=== PATIENT | female | born 1940 | race Caucasian/White ===

== ENCOUNTER 2021-09-11 03:31 | Emergency (ER) | payer MEDICARE, OTHER ==
[2021-09-11] MEDS ORDERED: Alum Hydroxide/Mag Hydroxide 15 ML, Lidocaine 2% 15 ML PO ONE ×2 (04:01)
[2021-09-11] MEDS ORDERED: Ondansetron 4 MG Tab.DIS PO ONE (04:12)
[2021-09-11] MEDS ORDERED: Potassium Chloride 20 MEQ Tab.ER PO STA (04:57)
--- NOTE | 2021-09-11 05:04 | EDM.PDOC ---
ED HPI GENERAL MEDICAL PROBLEM - General Chief Complaint: Chest Pain Stated Complaint: CHEST PAIN Time Seen by Provider: 09/11/21 03:45 Source of Information: Reports: Patient History Limitations: Reports: No Limitations - History of Present Illness INITIAL COMMENTS - FREE TEXT/NARRATIVE: Patient presented to the Ed because of chest pain and epigastric pain which started at 11 pm last night. she also c/o nausea and vomiting x1. There is no dyspnea, fever, chills, cough or cold symptoms. He has a history of HTN and is taking metoprolol,lisinopril and HCTZ. chest/abdomen Pain Score (Numeric/FACES): 5 - Related Data Allergies Allergy/AdvReac Type Severity Reaction Status Date / Time No Known Allergies Allergy Verified 09/11/21 03:58 Home Meds: Home Meds Famotidine [Pepcid] 10 mg PO DAILY 09/11/21 [History] Metoprolol Tartrate [Lopressor] 50 mg PO DAILY 09/11/21 [History] Ondansetron [Zofran ODT] 4 mg PO Q4H PRN #5 tab.dis 09/11/21 [Rx] Potassium Chloride [Klor-Con M20] 20 meq PO TID #6 tab.er.prt 09/11/21 [Rx] hydroCHLOROthiazide [Hydrochlorothiazide] 12.5 mg PO DAILY 09/11/21 [History] lisinopriL [Prinivil] 20 mg PO DAILY 09/11/21 [History] Past Medical History HEENT History: Reports: Impaired Vision Cardiovascular History: Reports: Hypertension Gastrointestinal History: Reports: GERD [employer] History: Reports: - Infectious Disease History Infectious Disease History: Reports: Chicken Pox, Measles, Mumps Social & Family History - Tobacco Use Tobacco Use Status *Q: Never Tobacco User Second Hand Smoke Exposure: No - Caffeine Use Caffeine Use: Reports: None - Recreational Drug Use Recreational Drug Use: No ED ROS GENERAL - Review of Systems Review Of Systems: See Below Constitutional: Reports: No Symptoms HEENT: Reports: No Symptoms Respiratory: Reports: No Symptoms Cardiovascular: Reports: Chest Pain Endocrine: Reports: No Symptoms GI/Abdominal: Reports: Abdominal Pain, Nausea, Vomiting Musculoskeletal: Reports: No Symptoms Skin: Reports: No Symptoms Neurological: Reports: No Symptoms Psychiatric: Reports: No Symptoms ED EXAM, GENERAL - Physical Exam Exam: See Below Exam Limited By: No Limitations General Appearance: Alert, No Apparent Distress Eye Exam: Bilateral Eye: PERRL Ears: Normal External Exam, Normal Canal Nose: Normal Inspection, Normal Mucosa, No Blood Throat/Mouth: Normal Inspection, Normal Lips, Normal Teeth, Normal Gums Head: Atraumatic, Normocephalic Neck: Normal Inspection, Supple, Non-Tender, Full Range of Motion Respiratory/Chest: No Respiratory Distress, Lungs Clear, Normal Breath Sounds, No Accessory Muscle Use, Chest Non-Tender Cardiovascular: Normal Peripheral Pulses, Regular Rate, Rhythm, No Edema, No Gallop GI/Abdominal: Normal Bowel Sounds, Soft, No Organomegaly, No Distention, No Abnormal Bruit, Other (epigastric tenderness) Back Exam: Normal Inspection, Full Range of Motion Extremities: Normal Inspection, Normal Range of Motion, Non-Tender, No Pedal Edema, Normal Capillary Refill Neurological: Alert, Oriented, CN II-XII Intact, Normal Cognition, Normal Gait, Normal Reflexes, No Motor/Sensory Deficits Psychiatric: Normal Affect Skin Exam: Warm #1 Interpretation EKG Date: 09/11/21 Time: 03:41 Rhythm: NSR Rate (Beats/Min): 53 [place]: Normal P-Wave: Present QRS: Normal ST-T: Normal QT: Normal [place]/PQ Interval: 177 Comparison: NA - No Prior EKG EKG Interpretation Comments: NSR Course - Vital Signs Text/Narrative:: Lab/EKG result was reviewed and discussed with patient Zofran ODT 4 mg PO x`1 GI cocktail PO x1 Kor con 40 meq PO x1 Last Recorded V/S: Last Vital Signs Temp 36.6 C 09/11/21 03:40 Pulse 58 L 09/11/21 03:40 Resp 18 09/11/21 03:40 BP 142/62 H 09/11/21 03:40 Pulse Ox 98 09/11/21 03:40 - Orders/Labs/Meds Orders: Active Orders 24 hr Category Date Time Status EKG 12 Lead [EK] Routine Ther 09/11/21 04:00 Ordered Labs: Laboratory Tests 09/11/21 09/11/21 09/11/21 Range/Units 04:08 04:08 04:08 WBC 7.9 (3.0-10.3) x10-3/uL RBC 4.21 (3.60-5.20) x10(6)uL Hgb 12.7 (11.4-15.5) g/dL Hct 37.8 (34.2-48.2) % MCV 89.8 (76.7-100.5) fL MCH 30.1 (23.9-33.9) pg MCHC 33.5 (31.9-34.8) g/dL RDW 13.1 (12.3-16.5) % Plt Count 155 (151-488) x10(3)uL MPV 10.5 (7.1-12.4) fL Neut % (Auto) 80.0 H (30.8-76.2) % Lymph % (Auto) 13.0 L (18.4-52.1) % [place] % (Auto) 5.9 (4.4-15.7) % Eos % (Auto) 0.5 L (0.6-8.1) % Baso % (Auto) 0.6 (0.2-1.5) % Neut # (Auto) 6.3 (1.5-6.3) x10-3/uL Lymph # (Auto) 1.0 (1.0-4.4) x10-3/uL [place] # (Auto) 0.5 (0.3-1.0) x10-3/uL Eos # (Auto) 0.0 (0.0-0.8) x10-3/uL Baso # (Auto) 0.0 (0.0-0.1) x10-3/uL Sodium 134 L (135-145) mmol/L Potassium 3.3 L (3.5-5.3) mmol/L Chloride 98 L (100-110) mmol/L Carbon Dioxide 29 (21-32) mmol/L BUN 18 (7-18) mg/dL Creatinine 1.2 H (0.55-1.02) mg/dL Est Cr Clr Drug Dosing TNP Estimated GFR (MDRD) 43 L (>60) BUN/Creatinine Ratio 15.0 (9-20) Glucose 113 (80-116) mg/dL Calcium 9.0 (8.6-10.2) mg/dL Total Bilirubin 0.7 (0.1-1.3) mg/dL AST 19 (5-25) IU/L ALT 15 (12-36) U/L Alkaline Phosphatase 53 L (56-112) IU/L Troponin I 6.0 (4.0-60.3) pg/mL Total Protein 6.9 (6.0-8.0) g/dL Albumin 3.7 (3.2-4.6) g/dL Globulin 3.2 g/dL Albumin/Globulin Ratio 1.2 Meds: Medications Discontinued Medications Generic Name Dose Route Start Last Admin Trade Name Freq PRN Reason Stop Dose Admin Al Hydroxide/Mg Hydroxide 15 0 ml 09/11/21 04:01 09/11/21 04:08 ml/ Lidocaine HCl 15 ml PO 09/11/21 04:02 30 ml ONETIME ONE Administration Ondansetron HCl 4 mg 09/11/21 04:12 09/11/21 04:17 Ondansetron 4 Mg Tab.Dis PO 09/11/21 04:13 4 mg ONETIME ONE Administration Potassium Chloride 40 meq 09/11/21 04:57 Potassium Chloride 20 Meq Tab.Er PO 09/11/21 04:58 NOW STA Departure - Departure Time of Disposition: 05:15 Disposition: Home, Self-Care 01 Condition: Good Clinical Impression: GERD (gastroesophageal reflux disease), Hypokalemia, Atypical chest pain Prescriptions: Potassium Chloride [Klor-Con M20] 20 meq PO TID #6 tab.er.prt Ondansetron [Zofran ODT] 4 mg PO Q4H PRN #5 tab.dis PRN Reason: Nausea Instructions: Food Choices for Gastroesophageal Reflux Disease, Adult, Nonspecific Chest Pain, Adult, [id number] Referrals: Katie Denton PA [Primary Care Provider] - Additional Instructions: Please read discharge instructions on GERD/Acid reflux, Non specific chest pain and hypokalemia(low potassium) Take Zofran ODT 4 mg every 4 hours as needed for nausea Klor con 20 meq 3 times daily for 2 days Follow up as needed Sepsis Event Note (ED) - Evaluation Sepsis Screening Result: No Definite Risk - Focused Exam Vital Signs: Vital Signs Temp Pulse Resp BP Pulse Ox 09/11/21 03:40 36.6 C 58 L 18 142/62 H 98 - My Orders Last 24 Hours: My Active Orders 09/11/21 04:00 EKG 12 Lead [EK] Routine - Assessment/Plan Last 24 Hours: My Active Orders 09/11/21 04:00 EKG 12 Lead [EK] Routine
[2021-09-11] MEDS ORDERED: Promethazine 25 MG/ML SDV IM STA (05:18)
--- NOTE | 2021-09-11 06:56 | PCM.EKG ---
#1 Interpretation EKG Date: 09/11/21 Time: 06:23 Rhythm: NSR Rate (Beats/Min): 54 [place]: Normal P-Wave: Present QRS: Normal ST-T: Normal QT: Normal [place]/PQ Interval: 175 Comparison: No Change EKG Interpretation Comments: NSR
[2021-09-11] MEDS ORDERED: Sodium Chloride 0.9% 1,000 ML IV ONE (08:07)
[2021-09-11] MEDS ORDERED: Ondansetron 4 MG/2 ML SDV IVPUSH ONE (08:09)
[2021-09-11] MEDS ORDERED: Ketorolac 30 MG/ML SDV IVPUSH ONE (08:10)
--- NOTE | 2021-09-11 08:24 | PCM.SN.2 ---
- Free Text/Narrative Note: 8:13a pt seen and evaluated earlier by Dr Dimas, he had given her GI meds and completed her discharge, however pt has had reoccurrence of her sxs and RN Trudi asked me to see her smoked 2y in college, not since had nausea with pain and vomited once at home and twice here, nausea resolved after Zofran and GI cocktail and phenergan here, however it returned and she had an emesis 30 min ago pain in LUQ got better but it is back, as is pain in LLQ, pain in LLQ is more uncomfortable, no mid abd pain had usual soft BM yesterday morning no prior GI problems, no prior GI surgery, no prior pul/CV problems other than an irregular heart beat years ago was home yesterday, went to dtr's house and let out dog at noon as dtr was working, ate hamburger for supper, watching TV at 11p when she developed pain in 2 locations: in LLQ and LUQ SH: pt from [facility], she moved to [place] 2m ago with her who was admitted to [facility], he one month ago she has sold her home in [place], plans to continue to live locally as her [facility] and and child live nearby PCP is Katie Denton whom she saw last month, no change in meds then rare alc, none in past month LABS: EKG at 6:23a with SR, rate 54, no ST change, no comparison, wnl trop neg, CBC neg except 80% segs, CMP neg except BUN/creat 18/1.2 with GFR 44 ROS: neg except as above PE: vss, appears mildly uncomfortable, pul CTA, no splint, good AE, HEEN neg, neck supple no LNs, CV RRR 2/6 FLOR at LSB, quiet precordium, abd soft with no distention, no mass, 1+ tender at LUQ at SCM in MAL, 1+ tender in LLQ above inguinal lig, slight suprapubic tender, NT on R side, flanks NT, no CVAT b/l, BS present altho seemed a little dec'd, ext no edema, turgor wnl MDM: 8:24a give reoccurrence of sxs difference is fairly extensive and includes GI/CV/vascular/ considerations 11:26a u/a neg for infection, SG 1.025, 15 mg/dl ketones. cone classifier tender in LLQ and LUQ, not appear to be inc'd stool on CTA chest/abd/pelvis. There is no aneurysm, emboli or occlusion of a major vessel. Pt does meet radiologic criteria for acute cholecystitis with think GB wall, 11 cm GB (usual length 8 cm). Pt however is non tender in RUQ. Will d/w Dr Zaldivar who is talking to another pt. 12:01p Dr Arechiga and Dr Stoddard and I reviewed images which show GB extending below lower margin of liver with stones and a likely stone in the cystic duct. On exam by Dr Rich, there was mild tenderness on the right side that had not been present on my exam in both RLQ and RUQ. Dr Rich requested antbx and outpt f/u. pt understands to avoid fatty foods and to come to ED if feeling worse. Dr Rich plans on choly the first of the year after the holidays, which is pt's request.ASS ASSESS: 1. acute cholecystitis 2. mild dehydration with ketonuria 3. CKD 4. elevated d-dimer, likely d/t #1 5. hypokalemia, mild, c/w HCTZ PLAN Augmentin 875/125 BID x 10d Zofran PRN KCL replacement APAP 500 mg 2 tabs QID x 10d for inflammation See Dr Rich in one week See Katie Denton in one week for pre-op Return to ED if feeling worse.
[2021-09-11] MEDS ORDERED: Iopamidol 755 Mg/ML 75 ML Bottle IV ONE (09:33)
--- NOTE | 2021-09-11 11:51 | CT ---
CT ANGIOGRAPHY CHEST, ABDOMEN AND PELVIS INDICATION: Elevated D-dimer 0.8, chest pain. New onset left upper quadrant, left lower quadrant pain x10 hours, lower abdomen pain. TECHNIQUE: Spiral 1.25 mm axial sections were obtained through the chest, abdomen and pelvis with contrast for angiography (75 mL Isovue 370 at 3 mL/sec) with sagittal and coronal reconstructions 09/11/21 - no comparisons. Total exam DLP was 382.20 mGy/cm. CT ANGIOGRAPHY CHEST WITH CONTRAST: FINDINGS: The lower neck visualized appeared unremarkable. Minimal calcification is noted at the arch of the aorta. No mediastinal mass or significant lymphadenopathy is seen. The heart did not appear grossly enlarged, but is at the least at the upper limits of normal in size. Pericardial thickening is noted anteriorly which may represent a small pericardial effusion. What most likely represents apical scarring is noted bilaterally, somewhat more prominent on the right. Superolaterally in the middle lobe there is a 2 cm bullous. There is some patchy infiltrate posterior to the major fissure in the apical superior segment of the right lower lobe which may represent fibrosis or possibly minimal patchy pneumonia. No gross consolidating pneumonia or effusion was identified. No evidence of pulmonary emboli in the first or second order pulmonary arteries. There are however what appears to be flow phenomena producing the appearance of filling defects in a few of the third order pulmonary arteries, notably in the area of the right lower lobe and left lower lobe and left third order area vessel also in the left upper lobe. These are not definite pulmonary emboli, but are felt to be flow phenomena producing the appearance of abnormal perfusion. IMPRESSION: 1. 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 2. Difficult to exclude minimal patchy pneumonia in the apical superior segment of the right lower lobe. 3. Bullous in the middle lobe. 4. No evidence of pulmonary emboli in the first or second order pulmonary arteries. There are however what appears to be flow phenomena producing the appearance of filling defects in a few of the third order pulmonary arteries, notably in the area of the right lower lobe and left lower lobe and left third order area vessel also in the left upper lobe. These are not definite pulmonary emboli, but are felt to be flow phenomena producing the appearance of abnormal perfusion. This appearance is compatible with low to moderate suspicion for minimal pulmonary embolus. CTA ABDOMEN AND PELVIS: FINDINGS: The thoracic and abdominal aorta were unremarkable except for scattered areas of atherosclerotic calcified plaque. No dissection or aneurysmal dilatation was noted. There are also noted calcifications in the iliac arteries. The gallbladder is enlarged measuring just over 11 cm in maximum diameter with wall thickening and pericholecystic fluid as well as multiple calculi. A calculus is suspected in the cystic duct. These findings are compatible with acute cholecystitis - correlate clinically. The liver was unremarkable. The adrenal glands, spleen, kidneys and pancreas appear normal. Common bile duct at the head of the pancreas did not appear to be enlarged. No retroperitoneal mass was seen. There is retroperitoneal lymphadenopathy which may be related to infection but should be correlated clinically. The appendix appeared normal visualized on axial images 353 through 370 and coronal images 29 through 37 with no evidence of appendicitis. Distal descending colon is also noted without evidence of diverticulitis. No evidence of free air or bowel obstruction was seen. No evidence of ventral or inguinal hernia was noted. IMPRESSION: 1. Acute cholecystitis with cholelithiasis and pericholecystic fluid suggested. 2. Normal appearing appendix. 3. No evidence of thoracic or abdominal aortic aneurysm or definite dissection, although atherosclerotic changes are present. 4. Dextroconvex scoliosis thoracolumbar spine. 5. Descending and sigmoid diverticulosis without definite evidence of diverticulitis. Report was called to Dr. Galindo at 1100 hours, 09/11/21. [facility]
--- NOTE | 2021-09-11 19:44 | PCM.SN.2 ---
- Free Text/Narrative Note: EKG 09-11-21 at 8:37 with SR, rate 60, no ST/acute/ischemic changes, no comparison, wnl
== END 2021-09-11 12:15 | disposition home or self-care (01) ==
LOC: FB.ED 03:31
DX: R07.89 Other chest pain (principal); K21.9 Gastro-esophageal reflux disease without esophagitis; I10 Essential (primary) hypertension; E87.6 Hypokalemia; Z79.899 Other long term (current) drug therapy
CPT/HCPCS: 36415; 71275; 74174; 80053; 81001; 83690; 84484; 85025; 85379; 86140; 93005; 96372; 96374; 96375; 99285; A9270; J1885; J2405; J2550; J7030; Q9967

== ENCOUNTER 2021-09-18 06:22 | Day surgery (SDC) | payer MEDICARE, OTHER ==
[2021-09-18] MEDS ORDERED: Propofol 200 MG/20 ML SDV IV ONE (06:23)
[2021-09-18] MEDS ORDERED: Midazolam 1 MG/ML 2 ML SDV IV ONE (06:23)
[2021-09-18] MEDS ORDERED: fentaNYL 100 MCG/2 ML SDV IV ONE (06:23)
[2021-09-18] MEDS ORDERED: Glycopyrrolate 0.2 MG/ML 5 ML MDV IV ONE (06:23)
[2021-09-18] MEDS ORDERED: Ondansetron 4 MG/2 ML SDV IVPUSH ONE (06:23)
[2021-09-18] MEDS ORDERED: Neostigmine Methylsulfate 10 MG/10 ML MDV IVPUSH ONE (06:23)
[2021-09-18] MEDS ORDERED: Ketorolac 30 MG/ML SDV IVPUSH ONE (06:23)
[2021-09-18] MEDS ORDERED: Rocuronium 100 MG/10 ML MDV IV ONE (06:23)
[2021-09-18] MEDS ORDERED: Lactated Ringers 1,000 ML IV SCH (06:30)
[2021-09-18] MEDS ORDERED: Sodium Chloride 0.9% 10 ML Syringe FLUSH PRN (06:30)
[2021-09-18] MEDS ORDERED: ceFAZolin 1 GM in Sodium Chloride 0.9% 50 ML IV ONE (08:00)
[2021-09-18] MEDS ORDERED: ceFAZolin 1 GM Vial IVPUSH ONE (08:00)
--- NOTE | 2021-09-18 08:17 | PCM.PN ---
- General Info Date of Service: 09/18/21 - Review of Systems Systems Review Comment:: 81 y/o female with symptomatic cholecystitis with stones here for cholecystectomy. Symptoms began [address] confirms diagnosis. She is medically stable to proceed. Recent history and physical reviewed and no sign ificant changes are noted. I have discussed the proposed cholecystectomy with the patient. Expectations and instructions reviewed. Alternatives and risks such as but not limited to bleeding, infection, organ injury, post op GI symptoms and possible need to convert to laparotomy. Her questions were answered and she agrees to proceed. - Patient Data Vitals - Most Recent: Last Vital Signs Temp 98.4 F 09/18/21 07:19 Pulse 68 09/18/21 07:19 Resp 16 09/18/21 07:19 BP 122/60 09/18/21 07:19 Pulse Ox 99 09/18/21 07:19 Weight - Most Recent: 113 lb 8.609 oz Lab Results Last 24 Hours: Laboratory Results - last 24 hr 09/18/21 Range/Units 06:50 SARS-CoV-2 RNA (RUSSELL) Negative (NEGATIVE) Med Orders - Current: Current Medications Lactated Ringer's (Ringers, Lactated) 1,000 mls @ 125 mls/hr IV ASDIRECTED SAMEERA Last Admin: 09/18/21 07:17 Dose: 125 mls/hr Documented by: Sodium Chloride (Sodium Chloride 0.9% 10 Ml Syringe) 10 ml FLUSH ASDIRECTED PRN PRN Reason: Keep Vein Open Discontinued Medications Cefazolin Sodium (Cefazolin 1 Gm Vial) 1 gm IVPUSH ONETIME ONE Stop: 09/18/21 08:01 - Patient Data Lab Results Last 24 hrs: Laboratory Results - last 24 hr 09/18/21 Range/Units 06:50 SARS-CoV-2 RNA (RUSSELL) Negative (NEGATIVE) Sepsis Event Note - Focused Exam Vital Signs: Vital Signs Temp Pulse Resp BP Pulse Ox 09/18/21 07:19 98.4 F 68 16 122/60 99 - Problem List Review Problem List Initiated/Reviewed/Updated: Yes - My Orders Last 24 Hours: My Active Orders 09/18/21 06:30 Patient Status [ADT] Routine Patient to Empty Bladder [RC] ASDIRECTED RT Incentive Spirometry [RC] ASDIRECTED Verify Patient Consent Obtain [RC] ASDIRECTED Nothing Per Oral Diet [DIET] Lactated Ringers [Ringers, Lactated] 1,000 ml IV ASDIRECTED Sodium Chloride 0.9% [Saline Flush] 10 ml FLUSH ASDIRECTED PRN Peripheral IV Insertion Adult [OM.PC] Routine Sequential Compression Device [OM.PC] Routine - Assessment Assessment:: Cholecystitis with cholelithiasis - Plan Plan:: Cholecystectomy
[2021-09-18] MEDS ORDERED: Lidocaine 0.5% 50 ML SDV INJECT ONE (08:34)
--- NOTE | 2021-09-18 09:42 | PCM.OPNOTE ---
- General Post-Op/Procedure Note Date of Surgery/Procedure: 09/18/21 Operative Procedure(s): Diagnostic Laparoscopy with lysis of gallbladder adhesions and biopsy of gallbladder Findings: Hard enlarged gallbladder with surface nodules and dense adhesions to surrounding structures especially in lower aspect. Pre Op Diagnosis: Cholecystitis Post-Op Diagnosis: Cholecystitis with severe adhesions - R/O malignancy Anesthesia Technique: General ET Tube Primary Surgeon: Alcides Arechiga Pathology: Biopsies of surface of gallbladder EBL in mLs: 25 Complications: None Condition: Good
[2021-09-18] MEDS ORDERED: Acetaminophen/HYDROcodone 325-5 MG Tab PO PRN (10:28)
--- NOTE | 2021-09-18 17:01 | OR ---
DATE OF OPERATION: 09/18/2021 SURGEON: Alcides Arechiga MD PREOPERATIVE DIAGNOSIS: Acute cholecystitis with cholelithiasis. POSTOPERATIVE DIAGNOSIS: Acute cholecystitis with dense gallbladder adhesions, possible malignancy. OPERATION PERFORMED: Diagnostic laparoscopy with lysis of gallbladder adhesions and biopsy of surface of gallbladder. INDICATIONS FOR SURGERY: This 81-year-old female has had a one-week history of right upper quadrant abdominal pain. A CT scan was performed which showed a markedly enlarged gallbladder with findings consistent with acute cholecystitis with cholelithiasis. She comes for cholecystectomy. FINDINGS: The gallbladder is markedly enlarged. There are severe adhesions of the gallbladder to multiple surrounding structures including multiple loops of bowel. These adhesions are extremely dense in the lower aspect of the gallbladder with it being firmly adherent to the duodenum. The surface of the gallbladder does have some inflammatory changes, but also some worrisome appearing nodules. The wall of the gallbladder is thickened and very firm. The adjacent liver appears normal. No other abnormalities are seen laparoscopically. PROCEDURE: The patient was taken to the operating room. She was given general endotracheal anesthesia and the abdomen was sterilely prepped and draped. An infraumbilical stab wound incision was made. Through this, a Veress needle was inserted and pneumoperitoneum via this needle to a pressure of 15 mmHg was achieved with carbon dioxide. The Veress needle was replaced with a 12 mm trocar into which the 5 mm variable angled laparoscopic camera was inserted. Under direct visualization, a subxiphoid midline 5 mm trocar was placed and another 5 mm trocar was placed in the right lower abdomen. All trocar sites were infiltrated with Marcaine prior to incision. Intra-abdominal inspection was carried out and attention was turned to the gallbladder. The gallbladder was noted to be adherent to multiple adjacent loops of bowel and also had an abnormal-appearing surface as described. Careful blunt dissection was used to separate the upper portion of the gallbladder from the colon and from small bowel. This adhesiolysis was carried down to the lower third of the gallbladder where extremely dense adhesions of the duodenum to the lower surface of the gallbladder were encountered. Careful attempts were made to free these adhesions, but despite persistent careful effort, the adhesions were so dense that it was felt that any attempt at freeing them would result in injury to the duodenum. After considering options and considering the abnormal appearance of the surface of the gallbladder which may represent malignancy, it was felt prudent to biopsy the gallbladder and to abort attempts at removal of the gallbladder. Surface adhesions and small nodules from the surface of the gallbladder were then removed and will be submitted as specimen. Careful examination indicated that there was no sign of any perforation of the bowel or gallbladder during the dissection. Copious irrigation of the operative region was performed. The trocars were removed under direct visualization and pneumoperitoneum was evacuated. The fascia of the umbilical trocar site was closed with a [id number] 0 Vicryl suture. Wounds were irrigated with Betadine and saline solution. Skin incisions approximated with interrupted 4-0 Vicryl in a subcuticular stitch. Benzoin and Steri-Strips were applied followed by antibiotic ointment and sterile dressings. The patient was then awakened, extubated, and taken from the operating room in satisfactory condition. ESTIMATED BLOOD LOSS: 25 mL. COMPLICATIONS: None. PROGNOSIS: Good. /[id number] ALL/RUBY
== END 2021-09-18 11:15 | disposition home or self-care (01) ==
LOC: FB.SDS 06:22
PROVIDERS: ATTEND Surgery
DX: K80.00 Calculus of gallbladder with acute cholecystitis without obstruction (principal); K66.0 Peritoneal adhesions (postprocedural) (postinfection); Z01.812 Encounter for preprocedural laboratory examination; Z20.822 Contact with and (suspected) exposure to COVID-19
CPT/HCPCS: 00790-QZ; 88305; A9270-GY; J0690; J1885; J2250; J2405; J2704; J2710; J3010; J3490; J7120; U0002

== ENCOUNTER 2021-11-08 16:40 | Emergency (ER) | payer MEDICARE, OTHER ==
[2021-11-08] MEDS ORDERED: Cephalexin 500 MG Cap PO ONE (17:37)
== END 2021-11-08 18:28 | disposition home or self-care (01) ==
LOC: FB.ED 16:40
DX: T81.49XA Infection following a procedure, other surgical site, initial encounter (principal); L76.34 Postprocedural seroma of skin and subcutaneous tissue following other procedure; I10 Essential (primary) hypertension; K21.9 Gastro-esophageal reflux disease without esophagitis; Z90.49 Acquired absence of other specified parts of digestive tract; Z79.899 Other long term (current) drug therapy
CPT/HCPCS: 99283; A9270

== ENCOUNTER 2022-10-22 10:25 | Emergency (ER) | payer MEDICARE, OTHER ==
[2022-10-22 12:21] LABS: ESTIMATED GFR 63 mL/min (>60)
[2022-10-22] MEDS ORDERED: Potassium Chloride 20 MEQ Tab.ER PO ONE (12:23)
[2022-10-22] MEDS ORDERED: Sodium Chloride 0.9% 10 ML Syringe FLUSH PRN (12:25)
[2022-10-22] MEDS ORDERED: Sodium Chloride 0.9% 500 ML IV ONE (12:25)
[2022-10-22] MEDS ORDERED: Sodium Chloride 0.9% 1,000 ML IV SCH (12:30)
[2022-10-22] MEDS ORDERED: Iopamidol 755 Mg/ML 75 ML Bottle IV ONE (13:15)
[2022-10-22] MEDS ORDERED: Potassium Chloride 10 MEQ in Premix Bag 1 BAG IV ONE (13:46)
[2022-10-22] MEDS ORDERED: Morphine 4 MG/ML VIAL IVPUSH ONE (14:58)
[2022-10-22] MEDS ORDERED: Ondansetron 4 MG/2 ML SDV IVPUSH ONE (14:58)
== END 2022-10-22 16:15 ==
LOC: FB.ED 10:25
DX: C79.51 Secondary malignant neoplasm of bone (principal); C78.02 Secondary malignant neoplasm of left lung; C78.01 Secondary malignant neoplasm of right lung; E87.6 Hypokalemia; E83.52 Hypercalcemia; R93.89 Abnormal findings on diagnostic imaging of other specified body structures; I10 Essential (primary) hypertension; K21.9 Gastro-esophageal reflux disease without esophagitis; Z79.899 Other long term (current) drug therapy; Z20.822 Contact with and (suspected) exposure to COVID-19
CPT/HCPCS: 36415; 71260; 74177; 80053; 81001; 82550; 83735; 85025; 86140; 93005; 93010; 96361; 96365; 96375; 99285; A9270; J2270; J2405; J3480; J7030; J7040; Q9967; U0002